=== PATIENT | male | born 2000 | race Hispanic/Latino ===

== ENCOUNTER 2023-02-17 17:32 | Day surgery (SDC) | payer SELFPAY ==
[2023-02-17] MEDS ORDERED: Bupivacaine PF 0.5% 30 ML VIAL ONE (17:39)
[2023-02-17] MEDS ORDERED: EPINEPHrine 1 MG/ML VIAL ONE (17:39)
[2023-02-17] MEDS ORDERED: fentaNYL 50 mcg/mL 1 mL Vial ONE (17:57)
[2023-02-17] MEDS ORDERED: Rocuronium Bromide 10 MG/ML (10ML VIAL) ONE (17:57)
[2023-02-17] MEDS ORDERED: Ondansetron PF 4 MG/2 ML Vial ONE (17:57)
[2023-02-17] MEDS ORDERED: PROPOFOL 20 ML ONE (17:57)
[2023-02-17] MEDS ORDERED: Dexamethasone 4 mg/ml Vial ONE (17:57)
[2023-02-17] MEDS ORDERED: Lidocaine 1% PF 5 ML VIAL ONE (17:57)
[2023-02-17] MEDS ORDERED: SUGAMMADEX SODIUM 200 MG/2 ML VIAL ONE (18:37)
[2023-02-17] MEDS ORDERED: Meperidine HCl/PF 25 MG/ML VIAL ONE (19:01)
== END 2023-02-17 20:05 | disposition home or self-care (01) ==
LOC: CSHSDC 17:32
PROVIDERS: ATTEND Specialist
PROC: 0DTJ4ZZ Resection of Appendix, Percutaneous Endoscopic Approach (ICD-10-PCS; principal; 2023-02-17)
DX: K35.80 Unspecified acute appendicitis (principal); Z79.899 Other long term (current) drug therapy
CPT/HCPCS: 88304; A4649; J0171; J1100; J2175; J2405; J2704; J3010; S0020